=== PATIENT | female | born 1955 | race Caucasian/White ===

== ENCOUNTER → 2017-04-10 | Outpatient (CLI) | payer OTHER ==
--- NOTE | 2017-04-10 11:31 | REPMRS ---
Patient History The patient states she had a clinical breast exam in March 2017. Patient is postmenopausal. Family history of colorectal cancer in father at age 69, breast cancer in mother at age 76, breast cancer in paternal grandmother at age 55, and ovarian cancer in maternal grandmother at age 83. Benign excisional biopsy of the right breast, 2002. Took hormonal contraceptives for 6 years. Digital Mammo Screening Bilat: April 10, 2017 - Exam #: [id number] Bilateral CC and MLO view(s) were taken. Technologist: Cristine Fuller, Technologist Prior study comparison: March 30, 2016, bilateral digital mammo screening bilat performed at [facility]. March 18, 2015, bilateral digital mammo screening bilat performed at [facility]. FINDINGS: The breast tissue is heterogeneously dense. This may lower the sensitivity of mammography. There has been no change in the appearance of the mammogram from the prior studies. There is a moderate amount of residual fibroglandular tissue which is fairly symmetric. There is no interval development of dominant mass, areas of architectural distortion, or clustered microcalcification typical of malignancy. ASSESSMENT: BI-RADS/ACR category 1 mammogram. Negative. Recommendation Routine screening mammogram in 1 year (for women over age 40). This mammogram was interpreted with the aid of an FDA-approved computer-aided dectection system. Electronically Signed By: Blue Simons MD 04/10/17 [id number]
== END ==
LOC: M RAD 09:10
PROVIDERS: ATTEND Nurse Practitioner Adult Health
DX: Z12.31 Encounter for screening mammogram for malignant neoplasm of breast (principal); Z78.0 Asymptomatic menopausal state; Z92.0 Personal history of contraception

== ENCOUNTER → 2018-04-18 | Outpatient (CLI) | payer OTHER | LOC: M RAD 08:44 | DX: Z12.31 Encounter for screening mammogram for malignant neoplasm of breast (principal) | CPT/HCPCS: 77067 ==

== ENCOUNTER → 2019-04-22 | Outpatient (CLI) | payer OTHER ==
--- NOTE | 2019-04-22 12:50 | REPMRS ---
Patient History The patient states she had a clinical breast exam in March 2019. Family history of breast cancer at age 76 in mother, colorectal cancer at age 69 in father, breast cancer at age 55 in paternal grandmother, ovarian cancer at age 83 in maternal grandmother. Benign excisional biopsy of the right breast, 2002. Took hormonal contraceptives for 6 years. 3D TOMOSYNTHESIS WAS PERFORMED. The [facility] lifetime risk for breast cancer is 14.6%. Digital Mammo Screening Bilat: April 22, 2019 - Exam #: [id number] Bilateral CC and MLO view(s) were taken. Technologist: Spring Costello, Technologist Prior study comparison: April 18, 2018, bilateral digital mammo screening bilat performed at [facility]. April 10, 2017, bilateral digital mammo screening bilat performed at [facility]. FINDINGS: The breast tissue is heterogeneously dense. This may lower the sensitivity of mammography. There has been no change in the appearance of the mammogram from the prior studies. There is a moderate amount of residual fibroglandular tissue which is fairly symmetric. There is no interval development of dominant mass, areas of architectural distortion, or clustered microcalcification typical of malignancy. Assessment: BI-RADS/ACR category 1 mammogram. Negative Mammogram. Recommendation Routine screening mammogram in 1 year (for women over age 40). This mammogram was interpreted with the aid of an FDA-approved computer-aided dectection system. Electronically Signed By: Blue Simons MD 04/22/19 [id number]
== END ==
LOC: M RAD 10:45
PROVIDERS: ATTEND Nurse Practitioner Adult Health
DX: Z12.31 Encounter for screening mammogram for malignant neoplasm of breast (principal)

== ENCOUNTER → 2020-04-27 | Outpatient (CLI) | payer BC ==
--- NOTE | 2020-05-21 13:54 | REPMRS ---
Patient History The patient states she has not had a clinical breast exam in over a year. Patient is postmenopausal. Family history of breast cancer at age 76 in mother, colorectal cancer at age 69 in father, breast cancer at age 55 in paternal grandmother, ovarian cancer at age 83 in maternal grandmother, breast cancer in paternal aunt. Benign excisional biopsy of the right breast, 2002. Took hormonal contraceptives for 6 years. Digital Woman Screen Mammo: April 27, 2020 - Exam #: [id number] Bilateral CC and MLO view(s) were taken. Technologist: Cristine Fuller, Technologist Prior study comparison: April 22, 2019, bilateral digital mammo screening bilat, performed at [facility]. April 18, 2018, bilateral digital mammo screening bilat, performed at [facility]. April 10, 2017, bilateral digital mammo screening bilat, performed at [facility]. FINDINGS: The breast tissue is heterogeneously dense. This may lower the sensitivity of mammography. The Volpara volumetric breast density category is: C. There is a moderate amount of heterogeneously dense fibroglandular tissue which is fairly symmetric. There is no interval development of dominant mass, architectural distortion, or grouped microcalcification typical of malignancy. There has been no change in the appearance of the mammogram from the prior studies. 3-D tomosynthesis shows no additional findings. Report was delayed due to a malware attack on this facility. Assessment: BI-RADS/ACR category 1 mammogram. Negative Mammogram. Recommendation Routine screening mammogram of both breasts in 1 year (for women over age 40). This patient's Lifetime Breast Cancer RIsk is estimated at 15.4 %. This mammogram was interpreted with the aid of an FDA-approved computer-aided dectection system. Electronically Signed By: Cong Estrada MD 05/21/20 [id number]
== END ==
LOC: M WHC 15:25
PROVIDERS: ATTEND Physician Assistant Medical
DX: Z12.31 Encounter for screening mammogram for malignant neoplasm of breast (principal); Z78.0 Asymptomatic menopausal state; Z80.3 Family history of malignant neoplasm of breast; Z80.0 Family history of malignant neoplasm of digestive organs; Z92.0 Personal history of contraception; Z86.018 Personal history of other benign neoplasm

== ENCOUNTER → 2021-05-03 | Outpatient (CLI) | payer BC ==
--- NOTE | 2021-05-03 14:28 | REPMRS ---
Patient History The patient states she had a clinical breast exam in April 2021. Family history of breast cancer at age 76 in mother, colorectal cancer at age 69 in father, breast cancer at age 55 in paternal grandmother, ovarian cancer at age 83 in maternal grandmother, breast cancer in paternal aunt. Benign excisional biopsy of the right breast, 2002. Took hormonal contraceptives for 6 years. No breast complaints today Patient signed the MRS sheet 1st covid vaccine 12/18/20-right arm-Pfizer 2nd covid vaccine 01/08/21-left arm Priors on PACS Patient Identification Verified Digital Woman Screen Mammo: May 03, 2021 - Exam #: [id number] Bilateral CC and MLO view(s) were taken. Technologist: Cristine Fuller, Technologist Prior study comparison: April 27, 2020, bilateral digital woman screen mammo performed at [facility]. April 22, 2019, bilateral digital mammo screening bilat, performed at [facility]. FINDINGS: The breast tissue is heterogeneously dense. This may lower the sensitivity of mammography. Screening. Digital screening (2D) mammography was performed bilaterally in the CC and MLO projections. Additionally, breast tomosynthesis (3D mammography) was performed bilaterally in the CC and MLO projections. Todays exam was compared to the prior exam/exams. By history, the patient has no complaints of a palpable breast abnormality or other significant breast complaints. The breasts are unchanged in size and shape. Once again, dense heterogenous fibroglandular elements are seen bilaterally in a stable appearing pattern but to such a degree that the sensitivity of the mammogram in detecting cancer is decreased.There are no bhupinder-soft tissue densities or spiculated masses. There is no internal architectural distortion.Once again, stable benign appearing calcifications are seen. There are no suspicious bhupinder-calcific clusters. Skin thickening or nipple retraction is not present. IMPRESSION: BI-RADS Category 2- Benign Findings. There is no evidence of malignant alteration of the breasts. Followup examination recommended in one year. The Volpara volumetric breast density category is C, the breasts are heterogenously dense which may obscure small masses. This mammogram was read with the assistance of [employer],an FDA approved computer aided detection system for mammography. The lifetime Tyrer-Cuzick score is 14.7 % Due to the density of the breasts or Tyrer Cuzick score of 20% or greater, MRI/whole breast screening ultrasound is warranted. Negative x-ray reports should not delay surgical consultation if a dominant or clinically suspicious mass is present. Not all breast cancers can be identified by mammography. Therefore, we recommend that you continue to perform regular breast self-examination and physical examination and then promptly contact your physician of any concerns or changes. Adenosis and dense breasts may obscure an underlying neoplasm. Assessment: BI-RADS/ACR category 2 mammogram. Benign Findings. Recommendation Routine screening mammogram of both breasts in 1 year. Electronically Signed By: Zafar Blackman DO 05/03/21 [id number]
== END ==
LOC: M WHC 11:11
PROVIDERS: ATTEND Nurse Practitioner Adult Health
DX: Z12.31 Encounter for screening mammogram for malignant neoplasm of breast (principal)

== ENCOUNTER → 2021-08-25 | Outpatient (CLI) | payer BC | LOC: M LABSMTC 09:35 | PROVIDERS: ATTEND Anesthesiology | DX: Z01.812 Encounter for preprocedural laboratory examination (principal); Z20.822 Contact with and (suspected) exposure to COVID-19 ==

== ENCOUNTER 2021-08-30 08:16 | Day surgery (SDC) | payer BC ==
[~2021-08-30] VITALS: Ht 167.6 cm; Wt 65.8 kg
[~2021-08-30 08:16] MED LIST: NS 1,000 ML IV ONE
[2021-08-30] MEDS ORDERED: LIDOCAINE 2% 100MG/5ML SDV (FOR ANES.) As Ordered ONE (10:28)
[2021-08-30] MEDS ORDERED: propofoL 500 MG/50 ML VIAL As Ordered ONE (10:28)
[2021-08-30 10:41] VITALS: BP 120/77
== END 2021-08-30 10:40 | disposition home or self-care (01) ==
LOC: M OPP 08:16
PROVIDERS: ATTEND Internal Medicine Gastroenterology
DX: Z12.11 Encounter for screening for malignant neoplasm of colon (principal); Z86.010 Personal history of colon polyps; Z80.0 Family history of malignant neoplasm of digestive organs; K57.30 Diverticulosis of large intestine without perforation or abscess without bleeding; K64.8 Other hemorrhoids; Z80.3 Family history of malignant neoplasm of breast; Z80.41 Family history of malignant neoplasm of ovary

== ENCOUNTER → 2022-06-30 | Outpatient (CLI) | payer MEDICARE, BC | LOC: M WHC 08:13 | PROVIDERS: ATTEND Nurse Practitioner Adult Health | DX: Z12.31 Encounter for screening mammogram for malignant neoplasm of breast (principal) ==

== ENCOUNTER → 2023-04-27 | Outpatient (REF) | payer MEDICARE, BC | LOC: M SFHCDERM 14:17 | PROVIDERS: ATTEND Physician Assistant | DX: L57.0 Actinic keratosis (principal); L57.8 Other skin changes due to chronic exposure to nonionizing radiation ==

== ENCOUNTER → 2023-07-03 | Outpatient (CLI) | payer MEDICARE, BC | LOC: M WHC 09:24 | PROVIDERS: ATTEND Nurse Practitioner Adult Health | DX: Z12.31 Encounter for screening mammogram for malignant neoplasm of breast (principal) ==